=== PATIENT | male | born 1930 | race Caucasian/White ===

== ENCOUNTER 2019-03-11 10:30 | Inpatient (IN) | payer MEDICARE, OTHER ==
[~2019-03-11] VITALS: Ht 165.1 cm; Wt 58.9 kg
[~2019-03-11 10:30] MED LIST: ACET-2343 PO; AMIO200T4 PO; APIX2.5T PO; ASPI-817 ORAL; ATOR40TA68 PO; CHOL100062 ORAL; DOCU-216 ORAL; FER325 ORAL; FER325 PO; FINA5TAB4 PO; FURO-110 PO; LINA5TAB PO; LISI5TAB PO; LOSA25TA2 PO; METO-335 PO; NOVO3I SC; TAMS-14 PO
[2019-03-14] MEDS ORDERED: DEXTROSE 50% 50 ML SYRINGE IV ONE (07:00)
[2019-03-14 07:23] VITALS: Ht 165.1 cm; Wt 58.9 kg
[2019-03-14 07:26] VITALS: BP 130/66; PULSE 90; RESP 18
[2019-03-14 10:30] VITALS: BP 144/77; PULSE 87; RESP 16
[2019-03-14] MEDS ORDERED: ACETAMINOPHEN 325 MG TAB PO PRN ×2 (11:00)
[2019-03-14] MEDS ORDERED: NACL 0.9% 3 ML SYG IV SCH (11:00)
[2019-03-14] MEDS: INSULIN ASPART [NOVOLOG] 3 ML PEN SC SCH ×3 (12:00→21:00)
[2019-03-14 14:17] VITALS: BP 99/61; PULSE 69; RESP 16
[2019-03-14] MEDS ORDERED: FUROSEMIDE 40 MG INJ IV ONE (15:30)
[2019-03-14 16:43] VITALS: BP 134/67; PULSE 85; RESP 18
[2019-03-14] MEDS: ONDANSETRON 4 MG INJ IV PRN (16:45)
[2019-03-14 19:27] VITALS: BP 140/65; PULSE 87; RESP 17
[2019-03-14] MEDS: ATORVASTATIN 40 MG TAB PO SCH (21:00)
[2019-03-14] MEDS: TAMSULOSIN (SR) 0.4 MG CAP PO SCH (21:00)
[2019-03-14] MEDS: DOCUSATE SODIUM 100 MG CAP PO SCH (21:24)
[2019-03-14] MEDS: LISINOPRIL 5 MG TAB PO SCH (21:27)
[2019-03-14] MEDS: FAMOTIDINE 20 MG TAB PO SCH (21:27)
[2019-03-14] MEDS: INSULIN GLARGINE [LANTus] (100 UNITS/ML) SYG SC SCH (21:33)
[2019-03-15 02:00] VITALS: BP 132/66; PULSE 86; RESP 17
[2019-03-15] MEDS: ACCU-CHEK XX SCH ×2 (02:00→20:08)
[2019-03-15] MEDS ORDERED: GLUCOSE GEL 15 GRAM TUBE PO PRN ×2 (03:00)
[2019-03-15] MEDS ORDERED: GLUCOSE GEL 15 GRAM TUBE BUCCAL PRN (03:00)
[2019-03-15] MEDS ORDERED: GLUCAGON 1 MG INJ IM PRN (03:00)
[2019-03-15] MEDS: INSULIN ASPART [NOVOLOG] 3 ML PEN SC SCH ×4 (07:35→20:08)
[2019-03-15 08:20] VITALS: BP 142/68; PULSE 80; RESP 17
[2019-03-15] MEDS: DOCUSATE SODIUM 100 MG CAP PO SCH ×2 (08:43→20:17)
[2019-03-15] MEDS: FERROUS SULFATE (EC) 325 MG TAB PO SCH (08:43)
[2019-03-15] MEDS: FAMOTIDINE 20 MG TAB PO SCH ×2 (08:45→20:16)
[2019-03-15] MEDS: LISINOPRIL 5 MG TAB PO SCH ×2 (08:45→20:17)
[2019-03-15] MEDS: CHOLECALCIFEROL 1,000 UNIT TAB PO SCH (08:46)
[2019-03-15] MEDS: ENOXAPARIN 40 MG/0.4 ML SYG SC SCH (08:48)
[2019-03-15] MEDS ORDERED: ASPIRIN (EC) 81 MG TAB PO SCH (09:00)
[2019-03-15] MEDS ORDERED: METOPROLOL (XL) 25 MG TAB PO SCH (09:00)
[2019-03-15 14:35] VITALS: BP 124/63; PULSE 81; RESP 15
[2019-03-15] MEDS: FINASTERIDE 5 MG TAB PO SCH (16:04)
[2019-03-15] MEDS ORDERED: FUROSEMIDE 20 MG INJ IV ONE (17:00)
[2019-03-15 19:57] VITALS: BP 119/58; PULSE 77; RESP 17
[2019-03-15] MEDS: METOPROLOL (XL) 25 MG TAB PO SCH (20:15)
[2019-03-15] MEDS: INSULIN GLARGINE [LANTus] (100 UNITS/ML) SYG SC SCH (20:16)
[2019-03-15] MEDS: TAMSULOSIN (SR) 0.4 MG CAP PO SCH (20:16)
[2019-03-15] MEDS: ATORVASTATIN 40 MG TAB PO SCH (20:17)
[2019-03-16 01:52] VITALS: BP 128/60; PULSE 85; RESP 17
[2019-03-16 06:57] VITALS: BP 128/60; PULSE 76; RESP 18
[2019-03-16] MEDS: INSULIN ASPART [NOVOLOG] 3 ML PEN SC SCH ×4 (08:00→21:00)
[2019-03-16 08:02] VITALS: BP 124/61; PULSE 76; RESP 16
[2019-03-16] MEDS: FERROUS SULFATE (EC) 325 MG TAB PO SCH (08:33)
[2019-03-16] MEDS: CHOLECALCIFEROL 1,000 UNIT TAB PO SCH (08:33)
[2019-03-16] MEDS: FAMOTIDINE 20 MG TAB PO SCH ×2 (08:33→20:12)
[2019-03-16] MEDS: METOPROLOL (XL) 25 MG TAB PO SCH ×2 (08:33→20:13)
[2019-03-16] MEDS: DOCUSATE SODIUM 100 MG CAP PO SCH ×2 (08:33→20:11)
[2019-03-16] MEDS: FINASTERIDE 5 MG TAB PO SCH (08:37)
[2019-03-16] MEDS: LISINOPRIL 5 MG TAB PO SCH ×2 (08:37→20:13)
[2019-03-16] MEDS ORDERED: FUROSEMIDE 20 MG INJ IV SCH (09:00)
[2019-03-16] MEDS: ENOXAPARIN 40 MG/0.4 ML SYG SC SCH (09:00)
[2019-03-16] MEDS ORDERED: NA PHOSPHATE/BIPHOS 133 ML ENEMA PR ONE (11:30)
[2019-03-16] MEDS ORDERED: SOD FERRIC GLUC COMPLX 125 MG in SOD CHLORIDE 0.9% 100 ML IVPB ONE (12:00)
[2019-03-16] MEDS: SOD FERRIC GLUC COMPLX 125 MG in SOD CHLORIDE 0.9% 100 ML IVPB SCH (14:28)
[2019-03-16 14:30] VITALS: BP 126/65; PULSE 82; RESP 16
[2019-03-16] MEDS ORDERED: CEFAZOLIN 2 GM/50 ML (PMX) 50 ML IVPB ONE (17:30)
[2019-03-16 20:00] VITALS: BP 123/63; PULSE 61; RESP 18
[2019-03-16] MEDS: TAMSULOSIN (SR) 0.4 MG CAP PO SCH (20:11)
[2019-03-16] MEDS: ATORVASTATIN 40 MG TAB PO SCH (20:12)
[2019-03-16] MEDS: INSULIN GLARGINE [LANTus] (100 UNITS/ML) SYG SC SCH (20:20)
[2019-03-16] MEDS ORDERED: DEXTROSE 5%-0.45% NACL 1,000 ML IV SCH (23:00)
[2019-03-17] VITALS (17 sets, daily range): BP systolic 107–146; BP diastolic 52–75; PULSE 69–79; RESP 14–20
[2019-03-17] MEDS: INSULIN ASPART [NOVOLOG] 3 ML PEN SC SCH ×6 (01:00→20:36)
[2019-03-17] MEDS: ACCU-CHEK XX SCH (01:37)
[2019-03-17] MEDS: CHOLECALCIFEROL 1,000 UNIT TAB PO SCH (09:00)
[2019-03-17] MEDS: FINASTERIDE 5 MG TAB PO SCH (09:00)
[2019-03-17] MEDS: LISINOPRIL 5 MG TAB PO SCH ×2 (09:00→20:24)
[2019-03-17] MEDS: FERROUS SULFATE (EC) 325 MG TAB PO SCH (09:00)
[2019-03-17] MEDS: DOCUSATE SODIUM 100 MG CAP PO SCH ×2 (09:00→20:24)
[2019-03-17] MEDS ORDERED: FUROSEMIDE 20 MG TAB PO SCH (09:00)
[2019-03-17] MEDS: METOPROLOL (XL) 25 MG TAB PO SCH ×2 (09:00→20:25)
[2019-03-17] MEDS: FAMOTIDINE 20 MG TAB PO SCH ×2 (09:00→21:00)
[2019-03-17] MEDS: SOD FERRIC GLUC COMPLX 125 MG in SOD CHLORIDE 0.9% 100 ML IVPB SCH (12:11)
[2019-03-17] MEDS: DEXTROSE 50% 50 ML SYRINGE IV PRN (12:11)
[2019-03-17] MEDS ORDERED: DEXTROSE 5%-0.9% NACL 1,000 ML IV SCH (13:00)
[2019-03-17] MEDS ORDERED: THROMBIN 5000 UNIT (RECOTHROM) VIAL ONE (15:51)
[2019-03-17] MEDS ORDERED: GELATIN SIZE 100 SPONGE ONE (15:51)
[2019-03-17] MEDS ORDERED: POLYMYXIN/BACITRACIN 1L IRRIG ONE (15:51)
[2019-03-17] MEDS ORDERED: EPHEDrine 25 MG/5 ML SYG IV PRN (16:00)
[2019-03-17] MEDS ORDERED: FENTAnyl 50 MCG/ML VIAL IV PRN (16:00)
[2019-03-17] MEDS ORDERED: HYDROmorphONE 1 MG/5 ML IV SYRINGE IV PRN ×2 (16:00)
[2019-03-17] MEDS ORDERED: ONDANSETRON 4 MG INJ IV PRN (16:00)
[2019-03-17] MEDS ORDERED: hydrALAzine 20 MG INJ IV PRN (16:00)
[2019-03-17] MEDS ORDERED: LABETALOL HCL 20MG INJ IV PRN (16:00)
[2019-03-17] MEDS ORDERED: DEXTROSE 50% 50 ML SYRINGE ONE (16:15)
[2019-03-17] MEDS ORDERED: morphine SULFATE/PF (10 MG/10 ML) INJ ONE (16:27)
[2019-03-17] MEDS ORDERED: ONDANSETRON 4 MG INJ ONE (18:22)
[2019-03-17] MEDS: SOD CHLORIDE 0.9% 1,000 ML IV SCH (20:23)
[2019-03-17] MEDS: ATORVASTATIN 40 MG TAB PO SCH (20:24)
[2019-03-17] MEDS: CEFAZOLIN 2 GM/50 ML (PMX) 50 ML IVPB SCH (20:24)
[2019-03-17] MEDS: TAMSULOSIN (SR) 0.4 MG CAP PO SCH (20:24)
[2019-03-17] MEDS: INSULIN GLARGINE [LANTus] (100 UNITS/ML) SYG SC SCH (20:32)
[2019-03-17] MEDS: ONDANSETRON 4 MG INJ IV PRN (22:12)
[2019-03-18] MEDS: ACCU-CHEK XX SCH (02:00)
[2019-03-18] MEDS ORDERED: ONDANSETRON 4 MG INJ IV PRN (02:30)
[2019-03-18 02:39] VITALS: BP 131/60; PULSE 80; RESP 20
[2019-03-18] MEDS: ONDANSETRON 4 MG INJ IV PRN ×2 (05:23→20:15)
[2019-03-18] MEDS: morphine 2 MG INJ IV PRN ×4 (05:24→18:54)
[2019-03-18] MEDS: CEFAZOLIN 2 GM/50 ML (PMX) 50 ML IVPB SCH ×2 (06:04→17:38)
[2019-03-18] MEDS: SOD CHLORIDE 0.9% 1,000 ML IV SCH ×2 (07:39→13:46)
[2019-03-18] MEDS: INSULIN ASPART [NOVOLOG] 3 ML PEN SC SCH ×4 (08:00→21:00)
[2019-03-18 08:07] VITALS: BP 130/59; PULSE 66; RESP 17
[2019-03-18] MEDS: FERROUS SULFATE (EC) 325 MG TAB PO SCH (08:22)
[2019-03-18] MEDS: FAMOTIDINE 20 MG TAB PO SCH ×2 (08:22→21:26)
[2019-03-18] MEDS: FINASTERIDE 5 MG TAB PO SCH (08:23)
[2019-03-18] MEDS: LISINOPRIL 5 MG TAB PO SCH ×2 (08:23→21:23)
[2019-03-18] MEDS: CHOLECALCIFEROL 1,000 UNIT TAB PO SCH (08:23)
[2019-03-18] MEDS: METOPROLOL (XL) 25 MG TAB PO SCH ×2 (08:24→21:23)
[2019-03-18] MEDS: DOCUSATE SODIUM 100 MG CAP PO SCH ×2 (08:24→21:22)
[2019-03-18] MEDS: SOD FERRIC GLUC COMPLX 125 MG in SOD CHLORIDE 0.9% 100 ML IVPB SCH (12:56)
[2019-03-18 14:21] VITALS: BP 130/61; PULSE 65; RESP 18
[2019-03-18] MEDS: HYDROCODONE/APAP (5/325) TAB PO PRN (17:35)
[2019-03-18 19:58] VITALS: BP 111/57; PULSE 66; RESP 18
[2019-03-18] MEDS ORDERED: LORAZEPAM 2 MG INJ IV ONE (20:00)
[2019-03-18] MEDS: INSULIN GLARGINE [LANTus] (100 UNITS/ML) SYG SC SCH (20:18)
[2019-03-18] MEDS: ATORVASTATIN 40 MG TAB PO SCH (21:22)
[2019-03-18] MEDS: TAMSULOSIN (SR) 0.4 MG CAP PO SCH (21:22)
[2019-03-19] MEDS: ACCU-CHEK XX SCH (02:00)
[2019-03-19] MEDS: morphine 2 MG INJ IV PRN (02:05)
[2019-03-19 02:28] VITALS: BP 132/60; PULSE 70; RESP 20
[2019-03-19] MEDS: CEFAZOLIN 2 GM/50 ML (PMX) 50 ML IVPB SCH (05:40)
[2019-03-19] MEDS: DEXTROSE 50% 50 ML SYRINGE IV PRN (07:16)
[2019-03-19 08:00] VITALS: BP 124/58; PULSE 73; RESP 19
[2019-03-19] MEDS: INSULIN ASPART [NOVOLOG] 3 ML PEN SC SCH ×4 (08:00→20:56)
[2019-03-19] MEDS: CHOLECALCIFEROL 1,000 UNIT TAB PO SCH (08:25)
[2019-03-19] MEDS: FAMOTIDINE 20 MG TAB PO SCH ×2 (08:25→20:58)
[2019-03-19] MEDS: METOPROLOL (XL) 25 MG TAB PO SCH ×2 (08:32→20:59)
[2019-03-19] MEDS: DOCUSATE SODIUM 100 MG CAP PO SCH ×2 (08:33→20:58)
[2019-03-19] MEDS: FINASTERIDE 5 MG TAB PO SCH (08:33)
[2019-03-19] MEDS: FERROUS SULFATE (EC) 325 MG TAB PO SCH (08:33)
[2019-03-19] MEDS: ASPIRIN 81 MG TAB PO SCH (08:33)
[2019-03-19] MEDS: ENOXAPARIN 40 MG/0.4 ML SYG SC SCH (08:36)
[2019-03-19 14:06] VITALS: BP 122/60; PULSE 65; RESP 17
[2019-03-19 20:00] VITALS: BP 128/65; PULSE 70; RESP 17
[2019-03-19] MEDS: ATORVASTATIN 40 MG TAB PO SCH (20:58)
[2019-03-19] MEDS: TAMSULOSIN (SR) 0.4 MG CAP PO SCH (20:58)
[2019-03-20 02:00] VITALS: BP 122/58; PULSE 77; RESP 17
[2019-03-20] MEDS: ACCU-CHEK XX SCH (02:00)
[2019-03-20] MEDS: morphine 2 MG INJ IV PRN (02:21)
[2019-03-20 08:00] VITALS: BP 138/65; PULSE 79; RESP 16
[2019-03-20] MEDS: INSULIN ASPART [NOVOLOG] 3 ML PEN SC SCH ×4 (08:00→21:00)
[2019-03-20] MEDS: ASPIRIN 81 MG TAB PO SCH (08:18)
[2019-03-20] MEDS: FINASTERIDE 5 MG TAB PO SCH (08:18)
[2019-03-20] MEDS: LINAGLIPTIN 5 MG TABLET PO SCH (08:18)
[2019-03-20] MEDS: FERROUS SULFATE (EC) 325 MG TAB PO SCH (08:18)
[2019-03-20] MEDS: DOCUSATE SODIUM 100 MG CAP PO SCH ×2 (08:18→21:16)
[2019-03-20] MEDS: FAMOTIDINE 20 MG TAB PO SCH ×2 (08:18→21:16)
[2019-03-20] MEDS: CHOLECALCIFEROL 1,000 UNIT TAB PO SCH (08:18)
[2019-03-20] MEDS: HEPARIN 5,000 UNIT/1 ML VIAL SC SCH ×2 (08:20→21:18)
[2019-03-20] MEDS: METOPROLOL (XL) 25 MG TAB PO SCH ×2 (08:27→21:16)
[2019-03-20 14:00] VITALS: BP 139/67; PULSE 78; RESP 18
[2019-03-20] MEDS ORDERED: CEFTRIAXONE 2 GM/50 ML (PMX) 50 ML IVPB SCH (14:00)
[2019-03-20] MEDS: CEFEPIME 2GM/50 ML (PMX) 50 ML IVPB SCH ×2 (14:13→21:12)
[2019-03-20 20:00] VITALS: BP 116/64; PULSE 76; RESP 18
[2019-03-20] MEDS ORDERED: TAMSULOSIN (SR) 0.4 MG CAP PO SCH (21:00)
[2019-03-20] MEDS: ATORVASTATIN 40 MG TAB PO SCH (21:16)
[2019-03-20] MEDS: TAMSULOSIN (SR) 0.4 MG CAP PO SCH (21:16)
[2019-03-21] MEDS: morphine 2 MG INJ IV PRN ×2 (00:36→04:20)
[2019-03-21] MEDS: ACCU-CHEK XX SCH (02:00)
[2019-03-21 08:00] VITALS: BP 126/81; PULSE 51; RESP 18
[2019-03-21] MEDS: INSULIN ASPART [NOVOLOG] 3 ML PEN SC SCH ×4 (08:11→21:00)
[2019-03-21] MEDS: HEPARIN 5,000 UNIT/1 ML VIAL SC SCH ×2 (08:12→21:35)
[2019-03-21] MEDS: FINASTERIDE 5 MG TAB PO SCH (08:13)
[2019-03-21] MEDS: ASPIRIN 81 MG TAB PO SCH (08:13)
[2019-03-21] MEDS: LINAGLIPTIN 5 MG TABLET PO SCH (08:13)
[2019-03-21] MEDS: FERROUS SULFATE (EC) 325 MG TAB PO SCH (08:13)
[2019-03-21] MEDS: CHOLECALCIFEROL 1,000 UNIT TAB PO SCH (08:13)
[2019-03-21] MEDS: FAMOTIDINE 20 MG TAB PO SCH ×2 (08:13→21:35)
[2019-03-21] MEDS: DOCUSATE SODIUM 100 MG CAP PO SCH ×2 (08:13→21:35)
[2019-03-21] MEDS: METOPROLOL (XL) 25 MG TAB PO SCH ×2 (08:15→21:34)
[2019-03-21] MEDS: CEFEPIME 2GM/50 ML (PMX) 50 ML IVPB SCH ×2 (08:57→21:35)
[2019-03-21] MEDS: FLUCONAZOLE 100 MG TAB PO SCH (12:20)
[2019-03-21 14:00] VITALS: BP 122/72; PULSE 84; RESP 18
[2019-03-21 20:40] VITALS: BP 126/62; PULSE 74; RESP 16
[2019-03-21] MEDS: TAMSULOSIN (SR) 0.4 MG CAP PO SCH (21:34)
[2019-03-21] MEDS: ATORVASTATIN 40 MG TAB PO SCH (21:35)
[2019-03-22] MEDS: ACCU-CHEK XX SCH (01:52)
[2019-03-22 03:08] VITALS: BP 122/67; PULSE 79; RESP 16
[2019-03-22 08:00] VITALS: BP 110/68; PULSE 114; RESP 22
[2019-03-22] MEDS: INSULIN ASPART [NOVOLOG] 3 ML PEN SC SCH ×4 (08:33→21:18)
[2019-03-22] MEDS: HEPARIN 5,000 UNIT/1 ML VIAL SC SCH ×2 (08:35→21:18)
[2019-03-22] MEDS: DOCUSATE SODIUM 100 MG CAP PO SCH ×2 (08:36→21:16)
[2019-03-22] MEDS: ASPIRIN 81 MG TAB PO SCH (08:36)
[2019-03-22] MEDS: LINAGLIPTIN 5 MG TABLET PO SCH (08:36)
[2019-03-22] MEDS: CHOLECALCIFEROL 1,000 UNIT TAB PO SCH (08:36)
[2019-03-22] MEDS: FLUCONAZOLE 100 MG TAB PO SCH (08:36)
[2019-03-22] MEDS: FAMOTIDINE 20 MG TAB PO SCH ×2 (08:36→21:16)
[2019-03-22] MEDS: FINASTERIDE 5 MG TAB PO SCH (08:36)
[2019-03-22] MEDS: FERROUS SULFATE (EC) 325 MG TAB PO SCH (08:36)
[2019-03-22] MEDS: METOPROLOL (XL) 25 MG TAB PO SCH ×2 (08:37→21:16)
[2019-03-22 08:40] VITALS: PULSE 106
[2019-03-22] MEDS: CEFEPIME 2GM/50 ML (PMX) 50 ML IVPB SCH ×2 (08:43→21:19)
[2019-03-22 14:00] VITALS: BP 128/73; PULSE 78; RESP 20
[2019-03-22 16:24] VITALS: BP 148/74; PULSE 82; RESP 22
[2019-03-22] MEDS: ALBUTEROL/IPRATROPIUM (NEB) 3 ML AMP HHN PRN ×2 (18:00→20:11)
[2019-03-22] MEDS: FUROSEMIDE 20 MG INJ IV SCH (18:46)
[2019-03-22 20:30] VITALS: BP 132/70; PULSE 98; RESP 22
[2019-03-22] MEDS: TAMSULOSIN (SR) 0.4 MG CAP PO SCH (21:16)
[2019-03-22] MEDS: ATORVASTATIN 40 MG TAB PO SCH (21:16)
[2019-03-22] MEDS ORDERED: FUROSEMIDE 20 MG INJ IV ONE (21:30)
[2019-03-23] VITALS (8 sets, daily range): BP systolic 132–159; BP diastolic 62–82; PULSE 56–99; RESP 18–26
[2019-03-23] MEDS: ALBUTEROL/IPRATROPIUM (NEB) 3 ML AMP HHN PRN (00:58)
[2019-03-23] MEDS ORDERED: LORAZEPAM 2 MG INJ IV ONE (01:30)
[2019-03-23] MEDS: ACCU-CHEK XX SCH (02:20)
[2019-03-23] MEDS: FUROSEMIDE 20 MG INJ IV SCH ×2 (05:31→17:34)
[2019-03-23] MEDS: FERROUS SULFATE (EC) 325 MG TAB PO SCH (08:17)
[2019-03-23] MEDS: ASPIRIN 81 MG TAB PO SCH (08:17)
[2019-03-23] MEDS: LINAGLIPTIN 5 MG TABLET PO SCH (08:17)
[2019-03-23] MEDS: CHOLECALCIFEROL 1,000 UNIT TAB PO SCH (08:18)
[2019-03-23] MEDS: FAMOTIDINE 20 MG TAB PO SCH ×2 (08:18→21:29)
[2019-03-23] MEDS: FINASTERIDE 5 MG TAB PO SCH (08:18)
[2019-03-23] MEDS: FLUCONAZOLE 100 MG TAB PO SCH (08:18)
[2019-03-23] MEDS: DOCUSATE SODIUM 100 MG CAP PO SCH ×2 (08:18→21:28)
[2019-03-23] MEDS: METOPROLOL (XL) 25 MG TAB PO SCH ×2 (08:18→21:28)
[2019-03-23] MEDS: INSULIN ASPART [NOVOLOG] 3 ML PEN SC SCH ×6 (08:29→21:00)
[2019-03-23] MEDS: HEPARIN 5,000 UNIT/1 ML VIAL SC SCH ×2 (08:29→21:00)
[2019-03-23] MEDS ORDERED: FUROSEMIDE 20 MG INJ IV ONE (10:00)
[2019-03-23] MEDS ORDERED: HALOPERIDOL 5 MG INJ IM ONE ×3 (10:00→14:00)
[2019-03-23] MEDS: CEFEPIME 2GM/50 ML (PMX) 50 ML IVPB SCH (12:35)
[2019-03-23] MEDS: INSULIN GLARGINE [LANTus] (100 UNITS/ML) SYG SC SCH (12:40)
[2019-03-23] MEDS: ALBUTEROL/IPRATROPIUM (NEB) 3 ML AMP HHN SCH ×3 (14:13→20:55)
[2019-03-23] MEDS: TAMSULOSIN (SR) 0.4 MG CAP PO SCH (21:28)
[2019-03-23] MEDS: ATORVASTATIN 40 MG TAB PO SCH (21:28)
[2019-03-24] VITALS (14 sets, daily range): BP systolic 114–147; BP diastolic 60–77; PULSE 81–103; RESP 18–24
[2019-03-24] MEDS: ALBUTEROL/IPRATROPIUM (NEB) 3 ML AMP HHN SCH ×6 (00:10→21:08)
[2019-03-24] MEDS ORDERED: LORAZEPAM 2 MG INJ IV ONE ×2 (01:00→12:49)
[2019-03-24] MEDS: ACCU-CHEK XX SCH (02:00)
[2019-03-24] MEDS: FUROSEMIDE 20 MG INJ IV SCH ×3 (06:04→17:24)
[2019-03-24] MEDS ORDERED: METOLAZONE 2.5 MG TAB PO ONE (07:30)
[2019-03-24] MEDS: INSULIN ASPART [NOVOLOG] 3 ML PEN SC SCH ×6 (07:40→17:24)
[2019-03-24] MEDS: FLUCONAZOLE 100 MG TAB PO SCH (08:06)
[2019-03-24] MEDS: FINASTERIDE 5 MG TAB PO SCH (08:06)
[2019-03-24] MEDS: DOCUSATE SODIUM 100 MG CAP PO SCH ×2 (08:06→20:09)
[2019-03-24] MEDS: FERROUS SULFATE (EC) 325 MG TAB PO SCH (08:06)
[2019-03-24] MEDS: FAMOTIDINE 20 MG TAB PO SCH ×2 (08:06→20:09)
[2019-03-24] MEDS: METOPROLOL (XL) 25 MG TAB PO SCH ×2 (08:07→20:09)
[2019-03-24] MEDS: CHOLECALCIFEROL 1,000 UNIT TAB PO SCH (08:07)
[2019-03-24] MEDS: ASPIRIN 81 MG TAB PO SCH (08:07)
[2019-03-24] MEDS ORDERED: QUETIAPINE 25 MG TAB PO ONE (09:30)
[2019-03-24] MEDS ORDERED: LIDOCAINE 1% (MPF) 5 ML VIAL ONE (10:19)
[2019-03-24] MEDS: metroNIDAZOLE 500 MG TAB PO SCH ×2 (11:28→17:24)
[2019-03-24] MEDS: LINAGLIPTIN 5 MG TABLET PO SCH (11:30)
[2019-03-24] MEDS: INSULIN GLARGINE [LANTus] (100 UNITS/ML) SYG SC SCH (11:35)
[2019-03-24] MEDS ORDERED: CEFEPIME 2GM/50 ML (PMX) 50 ML IVPB SCH (13:00)
[2019-03-24] MEDS: DEXTROSE 50% 50 ML SYRINGE IV PRN (17:19)
[2019-03-24] MEDS ORDERED: DEXTROSE 5%-0.45% NACL 1,000 ML IV SCH (19:30)
[2019-03-24] MEDS: TAMSULOSIN (SR) 0.4 MG CAP PO SCH (20:09)
[2019-03-24] MEDS: ATORVASTATIN 40 MG TAB PO SCH (20:09)
[2019-03-24] MEDS: HEPARIN 5,000 UNIT/1 ML VIAL SC SCH (21:49)
[2019-03-24] MEDS: metroNIDAZOLE 500 MG/NS (PMX) 100 ML IVPB SCH (21:53)
[2019-03-25] VITALS (38 sets, daily range): BP systolic 70–147; BP diastolic 56–108; PULSE 65–135; RESP 13–25
[2019-03-25] MEDS: DEXTROSE 50% 50 ML SYRINGE IV PRN (00:15)
[2019-03-25] MEDS: ACCU-CHEK XX SCH (01:02)
[2019-03-25] MEDS: ALBUTEROL/IPRATROPIUM (NEB) 3 ML AMP HHN SCH ×3 (01:35→08:01)
[2019-03-25] MEDS: DEXTROSE 10% 1,000 ML IV SCH ×2 (01:43→21:30)
[2019-03-25] MEDS: metroNIDAZOLE 500 MG/NS (PMX) 100 ML IVPB SCH (05:02)
[2019-03-25] MEDS: FUROSEMIDE 20 MG INJ IV SCH (05:02)
[2019-03-25] MEDS: INSULIN ASPART [NOVOLOG] 3 ML PEN SC SCH ×4 (06:00→17:37)
[2019-03-25] MEDS: CHOLECALCIFEROL 1,000 UNIT TAB PO SCH (09:00)
[2019-03-25] MEDS: FINASTERIDE 5 MG TAB PO SCH (09:00)
[2019-03-25] MEDS: ASPIRIN 81 MG TAB PO SCH (09:00)
[2019-03-25] MEDS: FERROUS SULFATE (EC) 325 MG TAB PO SCH (09:00)
[2019-03-25] MEDS: DOCUSATE SODIUM 100 MG CAP PO SCH ×2 (09:00→20:30)
[2019-03-25] MEDS: LINAGLIPTIN 5 MG TABLET PO SCH (09:00)
[2019-03-25] MEDS ORDERED: METOPROLOL 5 MG INJ IV SCH (09:00)
[2019-03-25] MEDS ORDERED: HALOPERIDOL 5 MG INJ IV ONE (09:00)
[2019-03-25] MEDS: FAMOTIDINE 20 MG TAB PO SCH ×2 (09:00→20:30)
[2019-03-25] MEDS ORDERED: ALBUMIN HUMAN 25% 100 ML ONE (09:18)
[2019-03-25] MEDS ORDERED: ALBUMIN HUMAN 25% 100 ML IV ONE (09:30)
[2019-03-25] MEDS ORDERED: AMIODARONE 150MG/D5W BOLUS 100 ML IV ONE (09:30)
[2019-03-25] MEDS ORDERED: AMIODARONE 900 MG in DEXTROSE 5% 482 ML IV SCH ×2 (09:30→12:00)
[2019-03-25] MEDS ORDERED: IPRATROPIUM (NEB) 0.5 MG/2.5 ML AMP HHN PRN (10:00)
[2019-03-25] MEDS ORDERED: NORepinephrine 8MG/250 ML (PMX 250 ML IV SCH (10:00)
[2019-03-25] MEDS ORDERED: LEVALBUTEROL (NEB) 0.63 MG/3 ML AMP HHN PRN (10:00)
[2019-03-25] MEDS ORDERED: AMIODARONE 150MG/D5W BOLUS 100 ML ONE (10:01)
[2019-03-25] MEDS: POTASSIUM CHLORIDE 100 ML IVPB SCH ×4 (10:03→17:01)
[2019-03-25] MEDS ORDERED: VANCOMYCIN 1 GM 250 ML IVPB SCH (10:30)
[2019-03-25] MEDS ORDERED: VANCOMYCIN IV PER PHARMACY XX SCH (10:30)
[2019-03-25] MEDS ORDERED: ALBUMIN HUMAN 25% 50 ML IV ONE (11:30)
[2019-03-25] MEDS ORDERED: MAGNESIUM SULFATE 1 GM/D5W 100 ML IVPB ONE (11:30)
[2019-03-25] MEDS ORDERED: PIPER-TAZO 3.375 GM IV (PMX) 100 ML IVPB SCH (12:00)
[2019-03-25] MEDS ORDERED: HEPARIN 25000 UNITS/250 ML 250 ML IV SCH (12:00)
[2019-03-25] MEDS ORDERED: HEPARIN 1000 UNITS/ML 10 ML INJ IV PRN ×2 (12:30)
[2019-03-25] MEDS ORDERED: DIGOXIN 500 MCG INJ IV ONE (13:00)
[2019-03-25] MEDS ORDERED: METOPROLOL 5 MG INJ IV PRN (14:00)
[2019-03-25] MEDS: PIPER-TAZO 2.25 GM/NS 50 ML IVPB SCH ×2 (14:37→18:52)
[2019-03-25] MEDS: TAMSULOSIN (SR) 0.4 MG CAP PO SCH (20:30)
[2019-03-25] MEDS: ATORVASTATIN 40 MG TAB PO SCH (20:30)
[2019-03-25] MEDS: QUETIAPINE 25 MG TAB PO SCH (20:30)
[2019-03-26] VITALS (26 sets, daily range): BP systolic 113–146; BP diastolic 55–87; PULSE 62–81; RESP 14–23
[2019-03-26] MEDS: PIPER-TAZO 2.25 GM/NS 50 ML IVPB SCH ×5 (00:36→23:13)
[2019-03-26] MEDS: INSULIN ASPART [NOVOLOG] 3 ML PEN SC SCH ×5 (00:36→23:05)
[2019-03-26] MEDS: DEXTROSE 5%-0.45% NACL 1,000 ML IV SCH ×2 (01:32→18:14)
[2019-03-26] MEDS: ACCU-CHEK XX SCH (02:00)
[2019-03-26] MEDS: POTASSIUM CHLORIDE 100 ML IVPB SCH ×3 (05:00→09:30)
[2019-03-26] MEDS: DOCUSATE SODIUM 100 MG CAP PO SCH (09:00)
[2019-03-26] MEDS: FERROUS SULFATE (EC) 325 MG TAB PO SCH (09:00)
[2019-03-26] MEDS: CHOLECALCIFEROL 1,000 UNIT TAB PO SCH (09:00)
[2019-03-26] MEDS: FAMOTIDINE 20 MG TAB PO SCH (09:00)
[2019-03-26] MEDS: FINASTERIDE 5 MG TAB PO SCH (09:50)
[2019-03-26] MEDS: ASPIRIN 81 MG TAB PO SCH (09:50)
[2019-03-26] MEDS: LINAGLIPTIN 5 MG TABLET PO SCH (09:51)
[2019-03-26] MEDS ORDERED: GLUCAGON 1 MG INJ IM PRN (20:00)
[2019-03-26] MEDS ORDERED: DEXTROSE 50% 50 ML SYRINGE IV PRN ×2 (20:00)
[2019-03-26] MEDS ORDERED: GLUCOSE GEL 15 GRAM TUBE BUCCAL PRN (20:00)
[2019-03-26] MEDS ORDERED: GLUCOSE GEL 15 GRAM TUBE PO PRN ×2 (20:00)
[2019-03-26] MEDS ORDERED: LORAZEPAM 2 MG INJ IV ONE ×2 (22:00→23:00)
[2019-03-26] MEDS ORDERED: VANCOMYCIN 750 MG (PMX) 250 ML IVPB SCH (23:00)
[2019-03-27] VITALS (7 sets, daily range): BP systolic 113–139; BP diastolic 54–64; PULSE 63–76; RESP 16–22
[2019-03-27] MEDS: ACCU-CHEK XX SCH ×2 (02:22→21:43)
[2019-03-27] MEDS: DOCUSATE SODIUM 100 MG CAP PO SCH ×3 (02:51→20:52)
[2019-03-27] MEDS: FAMOTIDINE 20 MG TAB PO SCH ×3 (02:52→20:51)
[2019-03-27] MEDS: ATORVASTATIN 40 MG TAB PO SCH ×2 (02:52→20:52)
[2019-03-27] MEDS: QUETIAPINE 25 MG TAB PO SCH ×2 (02:53→20:52)
[2019-03-27] MEDS: TAMSULOSIN (SR) 0.4 MG CAP PO SCH ×2 (02:53→20:52)
[2019-03-27] MEDS: AMIODARONE 200 MG TAB PO SCH ×3 (02:53→20:51)
[2019-03-27] MEDS: PIPER-TAZO 2.25 GM/NS 50 ML IVPB SCH (06:45)
[2019-03-27] MEDS: FERROUS SULFATE (EC) 325 MG TAB PO SCH (09:00)
[2019-03-27] MEDS: DEXTROSE 5%-0.9% NACL 1,000 ML IV SCH (09:32)
[2019-03-27] MEDS: ASPIRIN 81 MG TAB PO SCH (09:36)
[2019-03-27] MEDS: FINASTERIDE 5 MG TAB PO SCH (09:37)
[2019-03-27] MEDS: CHOLECALCIFEROL 1,000 UNIT TAB PO SCH (09:38)
[2019-03-27] MEDS: LINAGLIPTIN 5 MG TABLET PO SCH (09:38)
[2019-03-27] MEDS: INSULIN ASPART [NOVOLOG] 3 ML PEN SC SCH ×4 (09:51→21:00)
[2019-03-27] MEDS ORDERED: POTASSIUM CHLORIDE (SR) 20 MEQ TAB PO STA (11:52)
[2019-03-27] MEDS ORDERED: POTASSIUM CHLORIDE 20 MEQ POWDER FOR ORAL SOLN ONE (12:15)
[2019-03-27] MEDS ORDERED: POTASSIUM CHLORIDE 20 MEQ POWDER FOR ORAL SOLN PO ONE (12:30)
[2019-03-27] MEDS: MEROPENEM 500MG/50 ML (PMX) 50 ML IVPB SCH ×2 (12:32→20:52)
[2019-03-27] MEDS: APIXABAN 5 MG TABLET PO SCH ×2 (12:33→20:51)
[2019-03-27] MEDS: ZYVOX 600 MG TAB PO SCH ×2 (12:33→20:52)
[2019-03-27] MEDS: morphine 2 MG INJ IV PRN (20:48)
[2019-03-28 04:18] VITALS: BP 127/55; PULSE 71; RESP 19
[2019-03-28] MEDS: INSULIN ASPART [NOVOLOG] 3 ML PEN SC SCH ×4 (07:00→22:11)
[2019-03-28 07:29] VITALS: BP 131/62; PULSE 65; RESP 20
[2019-03-28] MEDS: DEXTROSE 5%-0.9% NACL 1,000 ML IV SCH (07:59)
[2019-03-28] MEDS: ZYVOX 600 MG TAB PO SCH ×2 (08:28→22:13)
[2019-03-28] MEDS: DOCUSATE SODIUM 100 MG CAP PO SCH ×2 (08:29→22:15)
[2019-03-28] MEDS: AMIODARONE 200 MG TAB PO SCH ×2 (08:29→22:14)
[2019-03-28] MEDS: FINASTERIDE 5 MG TAB PO SCH (08:29)
[2019-03-28] MEDS: ASPIRIN 81 MG TAB PO SCH (08:29)
[2019-03-28] MEDS: CHOLECALCIFEROL 1,000 UNIT TAB PO SCH (08:29)
[2019-03-28] MEDS: FAMOTIDINE 20 MG TAB PO SCH ×2 (08:29→22:14)
[2019-03-28] MEDS: LINAGLIPTIN 5 MG TABLET PO SCH (08:29)
[2019-03-28] MEDS: APIXABAN 5 MG TABLET PO SCH ×2 (08:29→22:13)
[2019-03-28] MEDS: FERROUS SULFATE (EC) 325 MG TAB PO SCH (08:29)
[2019-03-28] MEDS: MEROPENEM 500MG/50 ML (PMX) 50 ML IVPB SCH ×2 (08:36→22:13)
[2019-03-28] MEDS ORDERED: POTASSIUM CHLORIDE 20 MEQ POWDER FOR ORAL SOLN PO ONE (11:00)
[2019-03-28 11:30] VITALS: BP 127/58; PULSE 67; RESP 18
[2019-03-28 15:35] VITALS: BP 134/58; PULSE 81; RESP 16
[2019-03-28 19:21] VITALS: BP 128/59; PULSE 76; RESP 18
[2019-03-28] MEDS: TAMSULOSIN (SR) 0.4 MG CAP PO SCH (22:13)
[2019-03-28] MEDS: ATORVASTATIN 40 MG TAB PO SCH (22:13)
[2019-03-28] MEDS: QUETIAPINE 25 MG TAB PO SCH (22:14)
[2019-03-28] MEDS: METOPROLOL (XL) 25 MG TAB PO SCH (22:15)
[2019-03-28 23:27] VITALS: BP 137/63; PULSE 71; RESP 20
[2019-03-29] VITALS (7 sets, daily range): BP systolic 110–134; BP diastolic 54–72; PULSE 58–75; RESP 16–21
[2019-03-29] MEDS: morphine 2 MG INJ IV PRN (02:06)
[2019-03-29] MEDS: ACCU-CHEK XX SCH (02:22)
[2019-03-29] MEDS: HYDROCODONE/APAP (5/325) TAB PO PRN (02:50)
[2019-03-29] MEDS ORDERED: HALOPERIDOL 5 MG INJ IM ONE (05:00)
[2019-03-29] MEDS ORDERED: LORAZEPAM 2 MG INJ IV ONE (05:00)
[2019-03-29] MEDS ORDERED: DIPHENHYDRAMINE 50 MG INJ IV ONE (05:00)
[2019-03-29] MEDS: LINAGLIPTIN 5 MG TABLET PO SCH (09:00)
[2019-03-29] MEDS: ZYVOX 600 MG TAB PO SCH ×2 (09:00→20:54)
[2019-03-29] MEDS: FINASTERIDE 5 MG TAB PO SCH (09:00)
[2019-03-29] MEDS: AMIODARONE 200 MG TAB PO SCH ×2 (09:00→20:55)
[2019-03-29] MEDS: APIXABAN 5 MG TABLET PO SCH (09:00)
[2019-03-29] MEDS: FERROUS SULFATE (EC) 325 MG TAB PO SCH (09:00)
[2019-03-29] MEDS: FAMOTIDINE 20 MG TAB PO SCH (09:00)
[2019-03-29] MEDS: CHOLECALCIFEROL 1,000 UNIT TAB PO SCH (09:00)
[2019-03-29] MEDS: ASPIRIN 81 MG TAB PO SCH (09:00)
[2019-03-29] MEDS: DOCUSATE SODIUM 100 MG CAP PO SCH ×2 (09:00→20:55)
[2019-03-29] MEDS: METOPROLOL (XL) 25 MG TAB PO SCH ×2 (09:00→21:00)
[2019-03-29] MEDS: DEXTROSE 5%-0.9% NACL 1,000 ML IV SCH (09:18)
[2019-03-29] MEDS: MEROPENEM 500MG/50 ML (PMX) 50 ML IVPB SCH ×2 (09:19→20:54)
[2019-03-29] MEDS: INSULIN ASPART [NOVOLOG] 3 ML PEN SC SCH ×4 (09:21→20:54)
[2019-03-29] MEDS ORDERED: LOSARTAN 25 MG TAB PO ONE (09:30)
[2019-03-29] MEDS ORDERED: FUROSEMIDE 20 MG INJ IV ONE (14:30)
[2019-03-29] MEDS: ATORVASTATIN 40 MG TAB PO SCH (20:54)
[2019-03-29] MEDS: QUETIAPINE 25 MG TAB PO SCH (20:55)
[2019-03-29] MEDS: TAMSULOSIN (SR) 0.4 MG CAP PO SCH (20:55)
[2019-03-30] VITALS (12 sets, daily range): BP systolic 105–135; BP diastolic 52–66; PULSE 65–82; RESP 18–21
[2019-03-30] MEDS: ACCU-CHEK XX SCH (02:00)
[2019-03-30] MEDS: DEXTROSE 5%-0.9% NACL 1,000 ML IV SCH (08:27)
[2019-03-30] MEDS: INSULIN ASPART [NOVOLOG] 3 ML PEN SC SCH ×4 (08:31→21:00)
[2019-03-30] MEDS: CHOLECALCIFEROL 1,000 UNIT TAB PO SCH (09:52)
[2019-03-30] MEDS: FERROUS SULFATE (EC) 325 MG TAB PO SCH (09:53)
[2019-03-30] MEDS: DOCUSATE SODIUM 100 MG CAP PO SCH ×2 (09:53→21:52)
[2019-03-30] MEDS: FINASTERIDE 5 MG TAB PO SCH (09:53)
[2019-03-30] MEDS: ASPIRIN 81 MG TAB PO SCH (09:53)
[2019-03-30] MEDS: FAMOTIDINE 20 MG TAB PO SCH (09:53)
[2019-03-30] MEDS: LINAGLIPTIN 5 MG TABLET PO SCH (09:55)
[2019-03-30] MEDS: LOSARTAN 25 MG TAB PO SCH (09:56)
[2019-03-30] MEDS: AMIODARONE 200 MG TAB PO SCH ×2 (09:56→21:52)
[2019-03-30] MEDS: METOPROLOL (XL) 25 MG TAB PO SCH ×2 (09:56→21:49)
[2019-03-30] MEDS: TAMSULOSIN (SR) 0.4 MG CAP PO SCH (21:49)
[2019-03-30] MEDS: QUETIAPINE 25 MG TAB PO SCH (21:52)
[2019-03-30] MEDS: ATORVASTATIN 40 MG TAB PO SCH (21:52)
[2019-03-31] VITALS (12 sets, daily range): BP systolic 102–136; BP diastolic 53–73; PULSE 60–73; RESP 17–21
[2019-03-31] MEDS: ACCU-CHEK XX SCH (01:42)
[2019-03-31] MEDS: INSULIN ASPART [NOVOLOG] 3 ML PEN SC SCH ×5 (07:00→21:53)
[2019-03-31] MEDS: FINASTERIDE 5 MG TAB PO SCH (08:26)
[2019-03-31] MEDS: CHOLECALCIFEROL 1,000 UNIT TAB PO SCH (08:26)
[2019-03-31] MEDS: BUMETANIDE 1 MG TAB PO SCH (08:27)
[2019-03-31] MEDS: ASPIRIN 81 MG TAB PO SCH (08:27)
[2019-03-31] MEDS: AMIODARONE 200 MG TAB PO SCH ×2 (08:27→21:47)
[2019-03-31] MEDS: LOSARTAN 25 MG TAB PO SCH (08:28)
[2019-03-31] MEDS: DOCUSATE SODIUM 100 MG CAP PO SCH ×2 (08:28→21:47)
[2019-03-31] MEDS: FERROUS SULFATE (EC) 325 MG TAB PO SCH (08:28)
[2019-03-31] MEDS: FAMOTIDINE 20 MG TAB PO SCH (08:28)
[2019-03-31] MEDS: METOPROLOL (XL) 25 MG TAB PO SCH ×2 (08:28→21:48)
[2019-03-31] MEDS: LINAGLIPTIN 5 MG TABLET PO SCH (08:29)
[2019-03-31] MEDS: TAMSULOSIN (SR) 0.4 MG CAP PO SCH (21:47)
[2019-03-31] MEDS: QUETIAPINE 25 MG TAB PO SCH (21:48)
[2019-03-31] MEDS: ATORVASTATIN 40 MG TAB PO SCH (21:48)
[2019-04-01] VITALS (10 sets, daily range): BP systolic 103–129; BP diastolic 52–61; PULSE 50–65; RESP 17–20
[2019-04-01] MEDS: ACCU-CHEK XX SCH (02:00)
[2019-04-01] MEDS: INSULIN ASPART [NOVOLOG] 3 ML PEN SC SCH ×4 (07:00→20:50)
[2019-04-01] MEDS ORDERED: POTASSIUM CHLORIDE (SR) 20 MEQ TAB PO STA (08:03)
[2019-04-01] MEDS: AMIODARONE 200 MG TAB PO SCH (09:00)
[2019-04-01] MEDS: METOPROLOL (XL) 25 MG TAB PO SCH ×2 (09:00→20:51)
[2019-04-01] MEDS: LOSARTAN 25 MG TAB PO SCH (09:27)
[2019-04-01] MEDS: CHOLECALCIFEROL 1,000 UNIT TAB PO SCH (09:27)
[2019-04-01] MEDS: ASPIRIN 81 MG TAB PO SCH (09:27)
[2019-04-01] MEDS: FAMOTIDINE 20 MG TAB PO SCH (09:28)
[2019-04-01] MEDS: BUMETANIDE 1 MG TAB PO SCH (09:28)
[2019-04-01] MEDS: FINASTERIDE 5 MG TAB PO SCH (09:28)
[2019-04-01] MEDS: FERROUS SULFATE (EC) 325 MG TAB PO SCH (09:28)
[2019-04-01] MEDS: LINAGLIPTIN 5 MG TABLET PO SCH (09:29)
[2019-04-01] MEDS ORDERED: POTASSIUM CHLORIDE 20 MEQ POWDER FOR ORAL SOLN PO ONE (09:30)
[2019-04-01] MEDS: DOCUSATE SODIUM 10 MG/ML (10ML CUP) PO SCH ×2 (12:26→20:51)
[2019-04-01] MEDS: APIXABAN 5 MG TABLET PO SCH ×2 (18:02→23:52)
[2019-04-01] MEDS: TAMSULOSIN (SR) 0.4 MG CAP PO SCH (20:51)
[2019-04-01] MEDS: QUETIAPINE 25 MG TAB PO SCH (20:51)
[2019-04-01] MEDS: ATORVASTATIN 40 MG TAB PO SCH (20:51)
[2019-04-02] MEDS: ACCU-CHEK XX SCH (02:00)
[2019-04-02 04:00] VITALS: BP 102/55; PULSE 53; RESP 20
[2019-04-02] MEDS: INSULIN ASPART [NOVOLOG] 3 ML PEN SC SCH ×4 (07:00→22:03)
[2019-04-02 07:22] VITALS: BP 134/61; PULSE 54; RESP 20
[2019-04-02] MEDS: ASPIRIN 81 MG TAB PO SCH (09:10)
[2019-04-02] MEDS: CHOLECALCIFEROL 1,000 UNIT TAB PO SCH (09:10)
[2019-04-02] MEDS: METOPROLOL (XL) 25 MG TAB PO SCH ×2 (09:10→21:39)
[2019-04-02] MEDS: APIXABAN 5 MG TABLET PO SCH ×2 (09:10→21:37)
[2019-04-02] MEDS: DOCUSATE SODIUM 10 MG/ML (10ML CUP) PO SCH ×2 (09:10→21:37)
[2019-04-02] MEDS: FERROUS SULFATE (EC) 325 MG TAB PO SCH (09:11)
[2019-04-02] MEDS: FINASTERIDE 5 MG TAB PO SCH (09:11)
[2019-04-02] MEDS: FAMOTIDINE 20 MG TAB PO SCH (09:11)
[2019-04-02] MEDS: BUMETANIDE 1 MG TAB PO SCH (09:11)
[2019-04-02] MEDS: LOSARTAN 25 MG TAB PO SCH (09:11)
[2019-04-02] MEDS: LINAGLIPTIN 5 MG TABLET PO SCH (09:11)
[2019-04-02] MEDS: AMIODARONE 200 MG TAB PO SCH (09:26)
[2019-04-02] MEDS ORDERED: INSULIN GLARGINE [LANTus] (100 UNITS/ML) SYG SC ONE (10:30)
[2019-04-02 10:54] VITALS: BP 115/56; PULSE 59; RESP 20
[2019-04-02 14:57] VITALS: BP 106/53; PULSE 57; RESP 20
[2019-04-02 20:00] VITALS: BP 118/58; PULSE 59; RESP 18
[2019-04-02] MEDS: TAMSULOSIN (SR) 0.4 MG CAP PO SCH (21:37)
[2019-04-02] MEDS: QUETIAPINE 25 MG TAB PO SCH (21:37)
[2019-04-02] MEDS: ATORVASTATIN 40 MG TAB PO SCH (21:37)
[2019-04-03] VITALS (12 sets, daily range): BP systolic 90–141; BP diastolic 47–88; PULSE 52–59; RESP 17–20
[2019-04-03] MEDS: ACCU-CHEK XX SCH (02:00)
[2019-04-03] MEDS: INSULIN ASPART [NOVOLOG] 3 ML PEN SC SCH ×4 (08:02→20:53)
[2019-04-03] MEDS: CHOLECALCIFEROL 1,000 UNIT TAB PO SCH (08:58)
[2019-04-03] MEDS: ASPIRIN 81 MG TAB PO SCH (08:58)
[2019-04-03] MEDS: LINAGLIPTIN 5 MG TABLET PO SCH (08:58)
[2019-04-03] MEDS: FINASTERIDE 5 MG TAB PO SCH (08:59)
[2019-04-03] MEDS: FAMOTIDINE 20 MG TAB PO SCH (08:59)
[2019-04-03] MEDS: FERROUS SULFATE (EC) 325 MG TAB PO SCH (08:59)
[2019-04-03] MEDS: BUMETANIDE 1 MG TAB PO SCH (08:59)
[2019-04-03] MEDS: APIXABAN 5 MG TABLET PO SCH ×2 (09:00→20:34)
[2019-04-03] MEDS: METOPROLOL (XL) 25 MG TAB PO SCH ×2 (09:00→20:34)
[2019-04-03] MEDS: DOCUSATE SODIUM 10 MG/ML (10ML CUP) PO SCH ×2 (09:00→20:34)
[2019-04-03] MEDS: LOSARTAN 25 MG TAB PO SCH (09:00)
[2019-04-03] MEDS: AMIODARONE 200 MG TAB PO SCH (09:00)
[2019-04-03] MEDS: QUETIAPINE 25 MG TAB PO SCH ×2 (14:14→20:34)
[2019-04-03] MEDS: TAMSULOSIN (SR) 0.4 MG CAP PO SCH (20:34)
[2019-04-03] MEDS: ATORVASTATIN 40 MG TAB PO SCH (20:34)
[2019-04-04 00:08] VITALS: BP 102/60; PULSE 56; RESP 18
[2019-04-04] MEDS: ACCU-CHEK XX SCH (02:00)
[2019-04-04 04:27] VITALS: BP 108/54; PULSE 57; RESP 16
[2019-04-04 07:46] VITALS: BP 101/54; PULSE 54; RESP 20
[2019-04-04] MEDS: INSULIN ASPART [NOVOLOG] 3 ML PEN SC SCH ×3 (07:55→18:28)
[2019-04-04] MEDS: DOCUSATE SODIUM 10 MG/ML (10ML CUP) PO SCH (09:00)
[2019-04-04] MEDS: LOSARTAN 25 MG TAB PO SCH (09:00)
[2019-04-04] MEDS: LINAGLIPTIN 5 MG TABLET PO SCH (09:55)
[2019-04-04] MEDS: BUMETANIDE 1 MG TAB PO SCH (09:55)
[2019-04-04] MEDS: FAMOTIDINE 20 MG TAB PO SCH (09:56)
[2019-04-04] MEDS: CHOLECALCIFEROL 1,000 UNIT TAB PO SCH (09:56)
[2019-04-04] MEDS: FINASTERIDE 5 MG TAB PO SCH (09:56)
[2019-04-04] MEDS: ASPIRIN 81 MG TAB PO SCH (09:56)
[2019-04-04] MEDS: FERROUS SULFATE (EC) 325 MG TAB PO SCH (09:57)
[2019-04-04] MEDS: QUETIAPINE 25 MG TAB PO SCH (09:57)
[2019-04-04] MEDS: APIXABAN 5 MG TABLET PO SCH (09:57)
[2019-04-04] MEDS: AMIODARONE 200 MG TAB PO SCH (09:58)
[2019-04-04 11:23] VITALS: BP 88/45; PULSE 53; RESP 20
[2019-04-04 15:31] VITALS: BP 103/53; PULSE 53; RESP 20
[2019-04-05] MEDS ORDERED: METOPROLOL (XL) 25 MG TAB PO SCH (09:00)
== END 2019-04-04 19:03 | DRG 239 ==
LOC: REC 03-14 06:04 → MS3 03-14 10:22 → EDSTATUS 03-14 10:30 → PP2 03-16 06:13 → 6WM 03-22 23:37 → ICU 03-25 09:42 → 6WM 03-26 17:25
PROVIDERS: ADMIT Family Medicine; ATTEND Internal Medicine
PROC: 0Y6H0Z3 Detachment at Right Lower Leg, Low, Open Approach (ICD-10-PCS; principal; 2019-03-17 15:00)
PROC: 0W9B3ZZ Drainage of Left Pleural Cavity, Percutaneous Approach (ICD-10-PCS; 2019-03-24)
DX: E11.52 Type 2 diabetes mellitus with diabetic peripheral angiopathy with gangrene (principal); I50.23 Acute on chronic systolic (congestive) heart failure; J18.9 Pneumonia, unspecified organism; G92 Toxic encephalopathy; J96.01 Acute respiratory failure with hypoxia; I96 Gangrene, not elsewhere classified; N17.9 Acute kidney failure, unspecified; E87.1 Hypo-osmolality and hyponatremia; N39.0 Urinary tract infection, site not specified; J90 Pleural effusion, not elsewhere classified; F05 Delirium due to known physiological condition; I11.0 Hypertensive heart disease with heart failure; I48.91 Unspecified atrial fibrillation; Z95.1 Presence of aortocoronary bypass graft; B96.5 Pseudomonas (aeruginosa) (mallei) (pseudomallei) as the cause of diseases classified elsewhere; B96.4 Proteus (mirabilis) (morganii) as the cause of diseases classified elsewhere; B96.89 Other specified bacterial agents as the cause of diseases classified elsewhere; D50.9 Iron deficiency anemia, unspecified; N40.1 Benign prostatic hyperplasia with lower urinary tract symptoms; R33.8 Other retention of urine
CPT/HCPCS: 32555; 36600; 70450; 70551; 71045; 71250; 76775; 76942; 80048; 80053; 80061; 81001; 81003; 82043; 82140; 82550; 82553; 82607; 82803; 82947; 82962; 83036; 83540; 83605; 83735; 83880; 84100; 84155; 84300; 84436; 84443; 84479; 84484; 85025; 85610; 85730; 86850; 86900; 86901; 87081; 87086; 88307; 92526; 92610; 93005; 93306; 94640; 94664; 97110; 97162; 97530; A4310; J0282; J0690; J0692; J0696; J1200; J1630; J1644; J1650; J1815; J1940; J2060; J2185; J2270; J2274; J2405; J2543; J2916; J3370; J3475; J3480; J7030; J7042; J7060; P9047